=== PATIENT | male | born 1985 | race Caucasian/White ===

== ENCOUNTER 2018-02-18 19:26 | Emergency (ER) | payer OTHER ==
[~2018-02-18] VITALS: Ht 165.1 cm; Wt 67.4 kg
[2018-02-18 19:34] VITALS: BP 131/82; PULSE 68; RESP 18; Ht 165.1 cm; Wt 67.4 kg
[2018-02-18] MEDS ORDERED: IBUP-1542 PO (22:01)
--- NOTE | 2018-02-18 22:09 | ERD ---
ER Documentation Chief Complaint Chief Complaint upper chest pain radiates to bilateral arms since yesterday. denies SOB HPI 33-year-old male complaining of bilateral chest pain since yesterday. Patient states the pain had a gradual onset, it is pressure-like. He reports pain with taking deep breath, or with arm movement. Denies shortness of breath. Denies fever or chills. Denies injury. Denies past medical history, denies tobacco use ROS All systems reviewed and are negative except as per history of present illness. Medications Home Meds Active Scripts Ibuprofen* (Motrin*) 600 Mg Tab, 600 MG PO Q6H PRN for PAIN AND OR ELEVATED TEMP , #30 TAB Prov:KARYN BOATENG Saul. POTATO PEELER 02/18/18 Allergies Allergies: Coded Allergies: No Known Drug Allergy (Verified Allergy, Unknown, 02/18/18) PMhx/Soc Medical and Surgical Hx: pt denies Medical Hx, pt denies Surgical Hx Hx Alcohol Use: No Hx Substance Use: No Hx Tobacco Use: No Smoking Status: Never smoker Physical Exam Vitals Vital Signs Date Temp Pulse Resp B/P (MAP) Pulse Ox O2 O2 Flow FiO2 Time Delivery Rate 02/18/18 97.0 68 18 131/82 99 19:34 (98) Physical Exam General: Well-developed, well-nourished, conscious and coherent, in no distress Skin: Warm and dry without rash, good texture and turgor Head: Normocephalic without evidence of trauma Chest: Normal AP diameter. Good expansion without retractions. Lungs are clear to auscultate bilaterally with good tidal volume. Reproducible chest wall tenderness bilaterally. Heart: Regular rate and rhythm. No murmur, rub, or gallops heard Abdomen: Soft and nontender without masses, guarding, or rebound. Bowel sounds are active. No hepatosplenomegaly Extremities: Full range of motion. Good strength bilaterally. Neuro: Alert and oriented 4, GCS 15. Procedures/MDM Well-appearing 33-year-old male presents the ED for bilateral chest pain since yesterday. EKG: Normal sinus rhythm, rate 66 bpm, normal intervals, right axis. No ST segment elevation or depression. No ectopic beats. No QT prolongation. No other EKG abnormalities. EKG read by Dr. Zelaya. Low suspicion for acute coronary syndrome, aortic dissection, pneumonia, pneumothorax, or PE. Patient has reproducible chest wall tenderness to palpation. Likely patient chest pain was from costochondritis. Troponin not obtained Patient appears well, stable for discharge and outpatient management. Medical decision making shared with patient and family. Education provided to patient and family. Patient and family expressed understanding of the plan. Medications on discharge: Ibuprofen. Follow-up: Primary care provider in 2-3 days or return to ED if worse. Disclaimer: Inadvertent spelling and grammatical errors are likely due to EHR/dictation software use and do not reflect on the overall quality of patient care. Also, please note that the electronic time recorded on this note does not necessarily reflect the actual time of the patient encounter. Departure Diagnosis: Primary Impression: Chest wall pain Condition: Stable Patient Instructions: Chest Wall Pain, Costochondritis Referrals: [facility] YOU HAVE RECEIVED A MEDICAL SCREENING EXAM AND THE RESULTS INDICATE THAT YOU DO NOT HAVE A CONDITION THAT REQUIRES URGENT TREATMENT IN THE EMERGENCY DEPARTMENT. FURTHER EVALUATION AND TREATMENT OF YOUR CONDITION CAN WAIT UNTIL YOU ARE SEEN IN YOUR DOCTORS OFFICE WITHIN THE NEXT 1-2 DAYS. IT IS YOUR RESPONSIBILITY TO MAKE AN APPOINTMENT FOR FOLOW-UP CARE. IF YOU HAVE A PRIMARY DOCTOR --you should call your primary doctor and schedule an appointment IF YOU DO NOT HAVE A PRIMARY DOCTOR YOU CAN CALL OUR PHYSICIAN REFERRAL HOTLINE AT IF YOU CAN NOT AFFORD TO SEE A PHYSICIAN YOU CAN CHOSE FROM THE FOLLOWING [facility] [id number] [facility]. [facility] [address] [facility] [address] [facility] [facility] [address] [facility] [facility] [place] [address] [facility]. [address] Additional Instructions: Call your primary care doctor TOMORROW for an appointment during the next 1 WEEK.Tell the clinical secretary that you were referred from this facility.See the doctor sooner or return here if your condition worsens before your appointment time. KARYN BOATENG NP Feb 18, 2018 22:09
== END 2018-02-18 22:38 | disposition home or self-care (01) ==
LOC: FTE 19:26
DX: R07.89 Other chest pain (principal); R40.2412 Glasgow coma scale score 13-15, at arrival to emergency department
CPT/HCPCS: 93005; Z7502

== ENCOUNTER 2018-10-09 06:20 | Emergency (ER) | payer OTHER ==
[~2018-10-09] VITALS: Ht 162.6 cm; Wt 66.0 kg
[~2018-10-09 06:20] MED LIST: BACL10TA PO; IBUP-1542 PO; NAPR-985 PO
[2018-10-09 06:24] VITALS: BP 135/87; PULSE 69; RESP 18; Ht 162.6 cm; Wt 66.0 kg
[2018-10-09] MEDS ORDERED: KETOROLAC 30 MG INJ IM STA (06:50)
== END 2018-10-09 07:44 | disposition home or self-care (01) ==
LOC: FTE 06:20
DX: M54.6 Pain in thoracic spine (principal)
CPT/HCPCS: 96372; J1885; Z7502